=== PATIENT | female | born 1970 | race Caucasian/White ===

== ENCOUNTER → 2023-08-05 16:53 | Outpatient (REF) | payer BC, SELFPAY | LOC: WDC 16:53 | PROVIDERS: ATTENDING PHYSICIAN Nurse Practitioner Adult Health; FAMILY PHYSICIAN Physician Assistant Medical | DX: Z12.31 Encounter for screening mammogram for malignant neoplasm of breast (principal) | CPT/HCPCS: 77063; 77067 ==

== ENCOUNTER → 2023-08-19 11:18 | Outpatient (REF) | payer BC, SELFPAY | LOC: RAD 11:18 | PROVIDERS: ATTENDING PHYSICIAN Nurse Practitioner Adult Health; FAMILY PHYSICIAN Physician Assistant Medical | DX: N93.9 Abnormal uterine and vaginal bleeding, unspecified (principal); N92.4 Excessive bleeding in the premenopausal period | CPT/HCPCS: 76830; 76856 ==

== ENCOUNTER → 2023-10-10 07:30 | Outpatient (REF) | payer BC, SELFPAY | LOC: CLAB 07:30 | PROVIDERS: ATTENDING PHYSICIAN Obstetrics & Gynecology Gynecology | DX: N93.9 Abnormal uterine and vaginal bleeding, unspecified (principal); N84.0 Polyp of corpus uteri | CPT/HCPCS: 88305 ==

== ENCOUNTER → 2024-02-03 11:04 | Outpatient (REF) | payer BC, SELFPAY | LOC: RAD 11:04 | PROVIDERS: ATTENDING PHYSICIAN Physician Assistant Medical | DX: F17.210 Nicotine dependence, cigarettes, uncomplicated (principal) | CPT/HCPCS: 71271 ==

== ENCOUNTER 2024-06-29 18:04 | Emergency (ER) | payer BC, SELFPAY ==
[2024-06-29 18:29] VITALS: BP 136/88
--- NOTE | 2024-06-29 20:04 | ED.GENMED ---
History of Present Illness
General
Chief Complaint: Musculo-Skeletal Complaint
Time Seen by Provider: 06/29/24 19:30
History of Present Illness
History of Present Illness:
54-year-old female presents to the emergency department for evaluation of bruising and swelling to the left hip After a fall 2 weeks ago, has had persistent swelling focal to the hip area but no swelling to the leg. Was sent to the emergency
department to rule out a DVT
Review of Systems
Review of Systems
Allergies reviewed?: Yes
All Other Systems: ROS reviewed and negative except as documented in HPI and ROS
Phy Exam
Physical Exam
Physical Exam:
GEN: Well appearing, NAD, WDWN
HEENT: Oral mucosa moist, no scleral icterus
Cardiac: Regular rate
Lung: No respiratory distress, no tachypnea
MSK: Large palpable hematoma to the left hip greater trochanteric region, normal L hip ROM
Skin: Good color, no pallor or jaundice, no rashes
Neuro: AO x3, moves all extremities freely
Psych: Calm, cooperative
Course
Orders/Labs/Results
Orders:
Orders
06/29/24 20:03
CR Hip - LT w/wo Pel 2-3 Vw* Urgent
Comment:
Reason For Exam: fall, hematoma
Include a pelvis x-ray?: No
Vital Signs
Initial and Last Documented VS:
Initial Vital Signs
Temp Pulse Resp BP Pulse Ox
98.3 F 85 18 136/88 95
06/29/24 18:29 06/29/24 18:29 06/29/24 18:29 06/29/24 18:29 06/29/24 18:29
Last Documented Vital Signs
Temp Pulse Resp BP Pulse Ox
98.3 F 85 18 136/88 95
06/29/24 18:29 06/29/24 18:29 06/29/24 18:29 06/29/24 18:29 06/29/24 18:29
MDM/Problems Addressed
MDM/Problems Addressed:
XR unremarkable; discussed supportive care for hematoma, no indication for US
*Critical Care Note
Total Time (30-74mins, 75-104mins- exclusive of procedures): Not Applicable
ED Attending Note
-
Portions of this chart may have been created with voice recognition software.� Occasional wrong word or��sound alike� substitutions may have occurred due to the inherent limitations of voice recognition software.
Discharge Plan
Departure
Patient Disposition: Home (Routine Discharge)
Date of Disposition: 06/29/24
Time of Disposition: 21:19
Patient with high blood pressure during this ER visit?: No
Discharge Problem:
Hematoma of left hip
Instructions: Hematoma
Prescriptions:
No Action
levonorgest-eth.estradiol-iron [Balcoltra] 1 EACH tablet
1 ea PO DAILY
Referrals:
Bárbara Odonnell PA [Family Provider] -
Interventions
Interventions:
*Risk Screen - Suicide Last Done: 06/29/24 18:29
*General Assessment Last Done: 06/29/24 19:36
*Neglect/Abuse Screening Last Done: 06/29/24 18:29
*ED COVID-19 Vaccine History Last Done: 06/29/24 18:29
*Nursing Disposition Last Done: 06/29/24 21:45
ED-Musculoskeletal Assessment Last Done: 06/29/24 19:36
Discharge Date and Time
Discharge Date/Time: 06/29/24 21:45
Print Language: BULGARIAN
== END 2024-06-29 21:45 | disposition home or self-care (01) ==
LOC: EMR 18:04
PROVIDERS: EMERGENCY PHYSICIAN Emergency Medicine; FAMILY PHYSICIAN Physician Assistant Medical
DX: S70.02XA Contusion of left hip, initial encounter (principal); M79.89 Other specified soft tissue disorders; W19.XXXA Unspecified fall, initial encounter
CPT/HCPCS: 99283; 73502

== ENCOUNTER → 2024-07-02 14:56 | Outpatient (REF) | payer BC, SELFPAY | LOC: MRI 3T 14:56 | PROVIDERS: ATTENDING PHYSICIAN Specialist; FAMILY PHYSICIAN Physician Assistant Medical | DX: M54.16 Radiculopathy, lumbar region (principal) | CPT/HCPCS: 72148 ==

== ENCOUNTER 2024-11-13 22:15 | Inpatient (IN) | payer BC, SELFPAY ==
[2024-11-13] VITALS (26 sets, daily range): BP systolic 72–132; BP diastolic 39–110; BMI 30.3; BMI 30.7
[2024-11-13 17:25] LABS: Glucose - Point of Care 115 mg/dl (70-99)
[2024-11-13] MEDS: NSS 1000 IV ×3 (17:26→19:15)
[2024-11-13 17:29] LABS: Hematocrit 23.9 % (37.0-47.0); Hemoglobin 8.0 g/dL (12.0-16.0); Mean Corp Hgb Conc. 33.5 g/dL (33.0-37.0); Mean Corpuscular Volume 101.7 fL (81.0-99.0); Nucleated Red Blood Cells % 0 %; Platelet Count 164 10^3/uL (130-400); Red Cell Dist. Width 12.8 % (11.5-14.5)
[2024-11-13 17:51] LABS: Troponin I < 0.012 ng/ml
[2024-11-13 17:59] LABS: ALT (SGPT) 128 U/L (0-35); AST (SGOT) 303 U/L (14-36); Albumin 3.1 g/dl (3.5-5.0); Alkaline Phosphatase 153 U/L (38-126); Blood Urea Nitrogen 47 mg/dl (7-17); Calcium 10.2 mg/dl (8.4-10.2); Carbon Dioxide 21 mmol/L (22-30); Chloride 107 mmol/L (98-107); Estimated Creatinine Clearance 34 ml/min; Glucose 109 mg/dl (70-99); Potassium 3.8 mmol/L (3.5-5.1); Sodium 134 mmol/L (135-145); Total Protein 6.0 g/dl (6.3-8.2); eGFR 29.50
[2024-11-13] MEDS: PROTONIX IV 40 MG IV (19:27)
--- NOTE | 2024-11-13 19:37 | ED.GENMED ---
History of Present Illness
General
Chief Complaint: Fainting/Passed Out
Source: patient
Exam Limitations: none
Time Seen by Provider: 11/13/24 18:03
Nursing documentation reviewed up to this point in time: agreed with
History of Present Illness
History of Present Illness:
Patient to ED with complaint of near syncope, weakness. States she felt well this AM but reports while walking towards store she became lightheaded and then fell to her knees. Denies hitting her head. Does not believe that she passed out. Brought
to ED for weakness and lightheadedness.
Review of Systems
Review of Systems
Allergies reviewed?: Yes
All Other Systems: ROS reviewed and negative except as documented in HPI and ROS
Constitutional: Reports fatigue
EENT: Reports no symptoms
Respiratory: Reports no symptoms
Cardiac: Reports no symptoms
ABD/GI: Reports no symptoms
: Reports no symptoms
Musculoskeletal: Reports no symptoms
Skin: Reports no symptoms
Neurological: Reports weakness and other (lightheaded)
Psychiatric: Reports no symptoms
Phy Exam
General Physical Exam
General Presentation: mild distress
General age: appears stated age
General Skin: warm and dry
General Habitus: normal
General Mental: alert
Cardiovascular Exam
Cardiovascular Exam: regular rate/rhythm and no edema
Gastrointestinal Exam
Gastrointestinal Exam: normal bowel sounds, soft, no organomegaly, no pulsatile mass, non distended and no cva tenderness
Rectal Exam: normal external exam and hard stool
Stool: black
Guaiac Status: positive
Musculoskeletal Exam
Musculoskeletal Exam: full ROM and neuro vasc intact
Skin Exam
Skin Exam: normal color, warm/dry and no rash
Psychiatric Exam
Psychiatric Exam: normal mood/affect
Course
Orders/Labs/Results
Orders:
Orders
11/13/24 17:09
Electrocardiogram (*1) Urgent
Reason for Study: Syncope
EKG- Treatment ONCE
11/13/24 17:17
Complete Blood Count/With Diff Urgent
Comprehensive Metabolic Panel Urgent
Ferritin Urgent
Comment: ADD ON
Folate Urgent
Comment: ADD ON
Iron Urgent
Comment: ADD ON
Lipase Urgent
Comment: ADD ON
Total Iron Binding Urgent
Comment: ADD ON
Troponin I Urgent
Vitamin B12 Urgent
Comment: ADD ON
11/13/24 17:25
0.9% Sodium Chloride 1000 ml [Nss] 1,000 ml IV BOLUS
11/13/24 18:19
0.9% Sodium Chloride 500 ml [Nss] 500 ml IV BOLUS
11/13/24 18:27
0.9% Sodium Chloride 1000 ml [Nss] 1,000 ml IV BOLUS
11/13/24 19:10
Pantoprazole [Protonix IV] 40 mg IV NOW STA
11/13/24 19:11
CT Abd/pel Without Iv Or Oral Urgent
Comment:
Reason For Exam: abd pain
11/13/24 19:15
0.9% Sodium Chloride 1000 ml [Nss] 1,000 ml IV 125 mls/hr
11/13/24 19:36
Add On- LAB Urgent
Tests Added?: lipase
11/13/24 20:47
Urinalysis Reflex To Culture Urgent
Date Specimen was Collected: 11/13/24
Time Specimen was Collected: 20:45
Comment: Clean catch
11/13/24 21:16
Bladder Scan- Treatment ONCE
11/13/24 21:55
Admit/Transfer Patient As Directed
Co-Sign Provider:
Level of Care: Inpatient admission
Assign to:: IMU- Intermediate Care
Physician / Group: Byron
Diagnosis: Anemia, GI Bleed
Reason for Hospitalization: PPI, blood transfusion, GI consult
Expected length of stay greater than two midnights?: Yes
ELOS- Estimated Length of Stay in days: 3
I certify the patient meets the requirements for IP care: Yes
PRN Pain Medication Management As Directed
May give lesser potent ordered pain med per pt: Yes
preference::
Protocol:: Medication orders for pain may be administered in a
manner that supports deferring to patient preference
when the pt is:
- Requesting an ordered lesser potent pain medication.
Least to most potent pain medications are defined
as: acetaminophen < NSAID < tramadol < opioids
(morphine, oxycodone, hydromorphone).
- Requesting a lesser dose of the same medication IF
ORDERED.
- Requesting a less intrusive route of administration
if both routes are prescribed by the provider (PO <
IV).
11/13/24 21:57
Code Status As Directed
Resuscitation Status: Full Code
11/13/24 22:01
Add On- LAB Routine
Tests Added?: iron, ferritin, tibc, folate vit b12
11/16/24 11:00
DC Protocol for Telemetry ONCE
Abnormal Lab Results
11/13/24 11/13/24
17:17 17:24
RBC 2.35 L 10^6/uL
(4.20-5.40)
Hgb 8.0 L g/dL
(12.0-16.0)
Hct 23.9 L %
(37.0-47.0)
MCV 101.7 H fL
(81.0-99.0)
MCH 34.0 H pg
(27.0-31.0)
MPV 10.7 H fL
(7.4-10.4)
Lymphocytes % 20.4 L %
(20.5-51.1)
Sodium 134 L mmol/L
(135-145)
Carbon Dioxide 21 L mmol/L
(22-30)
BUN 47 H mg/dl
(7-17)
Creatinine 2.0 H mg/dL
(0.6-1.0)
Glucose 109 H mg/dl
(70-99)
Ferritin 766.0 H ng/ml
(11.1-264.0)
AST 303 H U/L
(14-36)
ALT 128 H U/L
(0-35)
Alkaline Phosphatase 153 H U/L
(38-126)
Total Protein 6.0 L g/dl
(6.3-8.2)
Albumin 3.1 L g/dl
(3.5-5.0)
POC Glucose 115 H mg/dl
(70-99)
11/13/24 17:17
11/13/24 17:17
Vital Signs
Initial and Last Documented VS:
Initial Vital Signs
Pulse Ox
96
11/13/24 17:15
Last Documented Vital Signs
Temp Pulse Resp BP Pulse Ox
98.4 F 71 16 105/63 97
11/13/24 17:18 11/13/24 23:15 11/13/24 23:15 11/13/24 23:15 11/13/24 23:15
*Pulse Oximetry
SaO2: 99
Oxygen Mode of Delivery: Room air
Patient hypoxic: no
*Critical Care Note
Total Time (30-74mins, 75-104mins- exclusive of procedures): Not Applicable
Update Note
Update Note:
Patient to ED with report of near syncopal event. REports feeling weak and lightheaded. Hypotensive on arrival. Given 1LNSS bolus withminimal improvement. Labs reviewed.Hgb 8 noted. ([facility] results: Hgb/hct 01/21/24 13.2/38.9). She denies any
prior history of anemia. CMP with BUN/Creat 47/2.0. Denies any history of renal disease. BUN/Creat from 01/21/24 4/0.69. AST 303, ALT 128 ALk phos 153 She admits to 3-4 glasses of wine every other day. believes she has had elevated liver enzymes
in the past ( 01/21/24 AST 255, ALT 87 alk phos 189) WIll admit to hospitalist for GI bleeding, symptomatic anemia, anemia FLORECITA, hypotension,
ED Attending Note
-
Portions of this chart may have been created with voice recognition software.� Occasional wrong word or��sound alike� substitutions may have occurred due to the inherent limitations of voice recognition software.
Discharge Plan
Departure
Patient Disposition: Admit
Date of Disposition: 11/13/24
Time of Disposition: 19:49
Presentation/result/management discussed w/ accepting MD/DO: Hospitalist
Patient with high blood pressure during this ER visit?: No
Condition: Fair
Covid-19: Not Applicable
Discharge Problem:
Acute GI bleeding, Anemia, FLORECITA (acute kidney injury)
Interventions
Interventions:
*Risk Screen - Suicide Last Done: 11/13/24 17:23
*General Assessment Last Done: 11/13/24 17:11
*Neglect/Abuse Screening Last Done: 11/13/24 17:23
*ED- Fall Risk Assessment Last Done: 11/13/24 17:11
*ED COVID-19 Vaccine History Last Done: 11/13/24 17:11
*Nursing Disposition Last Done: 11/13/24 23:22
ED- Cardiac Assessment Last Done: 11/13/24 17:23
ED- Neurological Assessment Last Done: 11/13/24 17:23
[2024-11-13 20:09] LABS: Lipase 156 U/L (23-300)
[2024-11-13 21:09] LABS: Urine Character Clear (Clear)
--- NOTE | 2024-11-13 22:10 | HPS.HSE ---
Addendum entered and electronically signed by Sunny Matthews DO 11/13/24 23:15:
Patient seen and examined independently. Agree with findings and plan as set forth by Arely Hardy PA-C.
Patient is a 54y F with PMH significant for hypertension, peripheral neuropathy and chronic liver disease / cirrhosis who presents to ED complaining of lightheadedness / collapse. Patient states that she started to feel lightheaded while
shopping today. She states that she fell to her knees, but denies losing consciousness. EMS states that she did briefly lose consciousness during their evaluation. Patient admits to regular use of ibuprofen (three times daily x weeks / months)
for chronic sciatic pain / back pain. She also reports regular alcohol use with at least 3 glasses of wine every other day. Occasional beer and hard alcohol as well.
Patient denies any N/V/D, black / bloody stools, abdominal pain, etc.
In the ED, she is noted to be hypotensive with black, heme positive stool on exam.
Ass:
UGIB
Acute Blood Loss Anemia secondary to the above
Syncope secondary to the above
FLORECITA
Benign Hypertension
Peripheral Neuropathy
Cirrhosis - Abnormal LFTs
Plan:
Admit for further evaluation and treatment.
NPO, IVFs, IV PPI.
Transfuse PRBCs for decreased Hgb (now 6.9 on repeat).
GI evaluation for further recommendations / endoscopic exam.
Abstain from NSAIDs, EtOH, etc.
Hold anti-hypertensive medications acutely.
Follow for recurrent lightheadedness, black / bloody stools, etc.
Original Note:
Family Physician
-
Family Physician: Bárbara Odonnell
Chief Complaint
-
Fainting/Passing Out
History of Present Illness
Patient si a 54 y/o female past medical history of hypertension, hyperlipidemia, peripheral neuropathy, and fatty liver disease who presents following a fainting episode. Patient report she was shopping and start to feel faint described as foggy.
EMS was called and initially patient refused transfer to the hospital but when attempting to get out of the truck she passed out. Upon arrival to the emergency department lab work revealed significant anemia, and patient was found to have
heme-positive stools. Patient denies any black/bloody stools. She admits to taking ibuprofen 600mg two to three times per day for her sciatica.
Medical History
Past Medical History
Past Medical History: Reports Other
Additional Past Medical History:
Essential Hypertension
Hyperlipidemia
Peripheral Neuropathy
Fatty Liver
Past Surgical History: Reports None
Social History
Tobacco: Vaping
Alcohol: Occasional (2-3 glasses of wine every other night)
Family History
Family History: Not pertinent
Allergies / Home Medications
Allergies reflects when Allergies were last updated in [employer].
Home Medications with original date entered in [employer]
Allergy/Medication List:
Allergies
Allergy/AdvReac Type Severity Reaction Status Date / Time
No Known Allergies Allergy Verified 11/13/24 17:23
Home Medications
amitriptyline 25 mg tablet 50 mg PO HS 11/13/24
atorvastatin 10 mg tablet 10 mg PO DAILY 11/13/24
losartan 50 mg tablet 50 mg PO DAILY 11/13/24
pregabalin 75 mg capsule 75 mg PO DAILY 11/13/24
pregabalin 75 mg capsule 150 mg PO HS 11/13/24
Review of Systems
-
A 12 point ROS was completed and negative except as noted: Yes
Constitutional: Denies Fever
Respiratory: Denies Cough or Trouble Breathing
Cardiac: Denies Chest Pain or Palpitations
Physical Exam
Vital Signs
Vital Signs
Temp Pulse Resp BP Pulse Ox
98.4 F 78 26 96/68 98
11/13/24 17:18 11/13/24 21:00 11/13/24 21:00 11/13/24 21:00 11/13/24 21:00
Physical Exam
General: Comfortable and Conversant
HEENT: NormoCephalic, Anicteric and Moist mucous membranes
Respiratory: Clear and Non Labored Respirations
Cardiac: S1/S2 and Regular Rhythm
GI: Soft and Non Tender
Rectal: Hem Positive (Per ED Provider)
Musculoskeletal: No Clubbing and No Cyanosis
Skin: Warm and Dry
Neuro: Awake, Alert, Oriented and Nonfocal/grossly intact
Psych: Calm
Laboratory Results
-
11/13/24 17:17
11/13/24 17:17
Laboratory Results
Total Bilirubin 1.2 mg/dl (0.2-1.3) 11/13/24 17:17
AST 303 U/L (14-36) H 11/13/24 17:17
ALT 128 U/L (0-35) H 11/13/24 17:17
Alkaline Phosphatase 153 U/L (38-126) H 11/13/24 17:17
Troponin I < 0.012 ng/ml 11/13/24 17:17
Lipase 156 U/L (23-300) 11/13/24 17:[address] Scan Report
Mildly nodular liver suggestive of cirrhosis.
Data Reviewed
-
Lab Data: Labs Reviewed by me
Old Records: Reviewed
Impression/Plan
-
Acute Blood Loss Anemia secondary to GI Bleed
-Check iron studies, vitamin b12 and folic acid
-Check Hgb now - Consider blood transfuse based on result - Consult obtained by ED and scanned into chart
GI Bleed, likely upper in nature relate to NSAID use
-Consult GI
-Continue Protonix 40mg IV BID
-Continue NPO/IVFs
Acute Kidney Injury, likely related to hypovolemia
-Continue IVFs
-Hold losartan
-Recheck labs in AM
Elevated LFTS
-Patient reports prior history of fatty liver
-CT scan raises concern for cirrhosis
-Continue to trend
Essential Hypertension
-BP running low - Hold losartan
Hyperlipidemia
-Hold atorvastatin
Peripheral Neuropathy / Chronic Pain
-Continue amitriptyline and pregabalin
DVT proph: SCDs
Code Status: Full Code
[2024-11-13 22:36] LABS: Iron 78 ug/dl (37-170)
[2024-11-13 22:45] LABS: Hematocrit 20.8 % (37.0-47.0); Hemoglobin 6.9 g/dL (12.0-16.0)
[2024-11-13 22:46] LABS: Total Iron Binding Capacity 273 ug/dl (265-497)
[2024-11-13 23:12] LABS: Ferritin 766.0 ng/ml (11.1-264.0)
[2024-11-13 23:44] LABS: Folate > 20.0 ng/ml (2.76-20); Vitamin B12 > 1000 pg/ml (239-931)
[2024-11-14] VITALS (24 sets, daily range): BP systolic 106–145; BP diastolic 59–94
[2024-11-14] MEDS: NSS 1000 IV ×3 (00:02→23:28)
[2024-11-14] MEDS: ELAVIL 50 MG PO ×2 (00:26→19:34)
[2024-11-14] MEDS: LYRICA 150 MG PO ×2 (00:27→19:34)
--- NOTE | 2024-11-14 01:08 | PTCARENOTE ---
2340: Patient arrived from ED with IVF infusing. Oriented to room and use of call rosenbaum. A/O x4. denies any pain. NSR on telemetry. Voided 800cc clear yellow urine in BSC; denied any dizziness. Admission questions complete. 2 units PRBCs ordered;
refer to [facility] for administration. Call rosenbaum and tray table left within reach. Patient thankful for care.
--- NOTE | 2024-11-14 06:08 | PTCARENOTE ---
2 units PRBCs infused without incident. VSS. Patient denies any pain. Next blood work due @ 0800.
--- NOTE | 2024-11-14 07:47 | CON.GI ---
Consultation
-
Date/Time Consultation Performed: 11/14/24
Performing Provider: Brandon Villafana MD
Reason for Consultation: GI bleed
Medical History
Chief Complaint / HPI
Chief Complaint: lightheadedness
History of Present Illness:
The patient is a 54-year-old female past medical history as noted who presents with lightheadedness. She had profound fatigue and fell to her knees yesterday with sudden onset of lightheadedness. This happened 1 other day on Friday though was
brief. She denies any melena though on presentation the emergency room had black tarry stools on rectal exam. Her hemoglobin on admission was 8, decreased to 6.9, now status post 2 units of PRBCs. Overnight she has been stable with no bowel
movements, no vomiting, has been hemodynamically stable. She states that she has known fatty liver though was not told that she has had cirrhosis in the past. She takes ibuprofen frequently as well as alcohol almost daily. Otherwise she been
doing well with really no other significant GI symptoms. She last had an endoscopy and colonoscopy noncoronary Co. around 2 years ago which were unremarkable by her report. CT scan in the emergency room per preliminary read shows mildly nodular
liver suggesting cirrhosis though otherwise no other acute findings.
Past Medical History
Past Medical History: Other (Fatty liver by report, chronic alcohol use, peripheral neuropathy, high cholesterol, hypertension)
Past Surgical History: None
Social History
Tobacco: Vaping
Alcohol: Daily
Family History
Family History: Reviewed & Not Pertinent
Allergies / Home Medications
Allergy/AdvReac Type Severity Reaction Status Date / Time
No Known Allergies Allergy Verified 11/13/24 17:23
�Medication �Instructions �Recorded
amitriptyline 25 mg tablet 50 mg PO HS 11/13/24
atorvastatin 10 mg tablet 10 mg PO DAILY 11/13/24
losartan 50 mg tablet 50 mg PO DAILY 11/13/24
pregabalin 75 mg capsule 75 mg PO DAILY 11/13/24
pregabalin 75 mg capsule 150 mg PO HS 11/13/24
Review of Systems
-
All other systems: A 12 pt ROS was Negative except as stated above in HPI
Vital Signs
Temp Pulse Resp BP Pulse Ox
97.5 F 67 17 128/78 97
11/14/24 07:40 11/14/24 07:41 11/14/24 07:30 11/14/24 07:41 11/14/24 07:41
Physical Exam
Exam
General: NAD
HEENT: MMM, anicteric, no lymphadenopathy
Heart: Regular, no murmurs
Lungs: CTA bilaterally
Abdomen: normal bowel sounds, soft, no tenderness, no rebound or guarding, no masses, bruits or ascites
Extremeties: no edema
Skin: no rashes
Results
WBC 7.3 10^3/uL (4.8-10.8) 11/13/24 17:17
Hgb 6.9 g/dL (12.0-16.0) L* 11/13/24 22:31
Hct 20.8 % (37.0-47.0) L* 11/13/24 22:31
MCV 101.7 fL (81.0-99.0) H 11/13/24 17:17
Plt Count 164 10^3/uL (130-400) 11/13/24 17:17
Absolute Neuts (auto) 4.9 10^3/uL (1.4-6.5) 11/13/24 17:17
Sodium 134 mmol/L (135-145) L 11/13/24 17:17
Potassium 3.8 mmol/L (3.5-5.1) 11/13/24 17:17
Chloride 107 mmol/L (98-107) 11/13/24 17:17
Carbon Dioxide 21 mmol/L (22-30) L 11/13/24 17:17
BUN 47 mg/dl (7-17) H 11/13/24 17:17
Creatinine 2.0 mg/dL (0.6-1.0) H 11/13/24 17:17
Calcium 10.2 mg/dl (8.4-10.2) 11/13/24 17:17
Total Bilirubin 1.2 mg/dl (0.2-1.3) 11/13/24 17:17
AST 303 U/L (14-36) H 11/13/24 17:17
ALT 128 U/L (0-35) H 11/13/24 17:17
Alkaline Phosphatase 153 U/L (38-126) H 11/13/24 17:17
Lipase 156 U/L (23-300) 11/13/24 17:17
Diagnostic Image Results:
CT scan without contrast as described above
Prior GI Procedures:
EGD:
Colonoscopy:
Assessment / Plan
-
1. GI bleed: Likely secondary to peptic ulcer disease given chronic NSAID use. CT scan raises suggestion of cirrhosis, though no other stigmata, with normal platelets, no ascites or signs of varices on CT scan. At this point we will continue PPI
twice daily, await posttransfusion hemoglobin, continue supportive care, check INR, and plan urgent EGD today. I discussed with Dr. Jernigan.
-
-
Thank you for consultation and allowing me to participate in the patient's care. Please call the strategic planning consultant GI physician during the after hours with any questions or concerns.
[2024-11-14] MEDS: VITAMIN B1 100 MG PO (08:07)
[2024-11-14] MEDS: LIPITOR 10 MG PO (08:07)
[2024-11-14] MEDS: PROTONIX IV 40 MG IV ×2 (08:07→19:34)
[2024-11-14] MEDS: NSS (PRESERVATIVE FREE) 10 ML IV ×2 (08:07→19:34)
[2024-11-14] MEDS: LYRICA 75 MG PO (08:07)
--- NOTE | 2024-11-14 08:12 | W.PN.HOSP.TC ---
Today's Communication/Plan
-
see PN
Assessment / Plan
Assessment / Plan
54yo F with PMHX of HLD, HTN, neuropathy, schiatica came with 2 days of lightheadedness w/o LOC and no neurological deficit, found severe anemia, received 1 unit PRBC in ED. Patient used NSAIDs daily for her schiatica. ALso known fatty liver but
without cirrhosis in past. FOund FOBT positive in ED
A/P:
#Blood loos symptomatic anemia 2/2 GIB
transfuse and keep Hgb >7
serial CBC
PPI
GI consult: EGD on 11/14/24
#FLORECITA
most liekly 2/2 hypovolemia and anemia
IVF, transfuse, follow Cr
might need further w/u if not improving
Cannot r/o NSAID induced, but no signs of ATN on US
#Midsystolic murmur
with lightheadedness - reasonable for Echo
#Hx of fatty liver
Transaminitis
Follow LFT
CT without overt signs of cirrhosis
check hepatitis panel
#Essential HTN
#Neuropathy
#HLD
#Insomnia
cont home meds
#Alcohol use, concern for abuse
watch for withdrawal
Thiamine
Folate WNL
counseled on cessation
DVT ppx SCds
Full code
I have spent at least 58min reviewing chart, test results, communication with consultants and providing direct patient care
Anticipated Discharge: 24 - 48 hours
Subjective/Interval History
-
Date of Service: November 14, 2024
Objective Data
-
Labs:
Laboratory Results
11/13/24 11/14/24 11/14/24
22:31 07:55 08:00
WBC Pending
Hgb 6.9 L* Pending
Hct 20.8 L* Pending
Plt Count Pending
PT Pending
INR Pending
Sodium Pending
Potassium Pending
Chloride Pending
Carbon Dioxide Pending
BUN Pending
Creatinine Pending
Glucose Pending
Calcium Pending
Vital Signs:
Vital Signs
Temp Pulse Resp BP Pulse Ox
97.5 F 67 17 128/78 97
11/14/24 07:40 11/14/24 07:41 11/14/24 07:30 11/14/24 07:41 11/14/24 07:41
I&O
11/13/24 11/14/24 11/15/24
06:59 06:59 06:59
Intake Total 500 / 500
Output Total 1900 / 1900
Balance -1400 / -1400
Review of Systems
-
History Source: Patient
All other systems: Reviewed and negative
Physical Exam
-
General: Comfortable and Respiratory Distress
HEENT: Normocephalic
Respiratory: Clear to Auscultation
Cardiac: Regular Rhythm and Murmur
GI: Soft, Nontender and Nondistended
Musculoskeletal: No Clubbing, No Cyanosis and No Edema
Neuro: Awake, Alert, Oriented and AO x 3
Psych: Calm
[2024-11-14 09:50] LABS: Hematocrit 31.5 % (37.0-47.0); Hemoglobin 10.7 g/dL (12.0-16.0); Mean Corp Hgb Conc. 34.0 g/dL (33.0-37.0); Mean Corpuscular Volume 99.1 fL (81.0-99.0); Platelet Count 132 10^3/uL (130-400); Red Cell Dist. Width 15.4 % (11.5-14.5)
[2024-11-14 09:56] LABS: INR 1.15; PT 15.0 Sec (11.4-14.6)
[2024-11-14 10:21] LABS: Blood Urea Nitrogen 30 mg/dl (7-17); Calcium 10.2 mg/dl (8.4-10.2); Carbon Dioxide 25 mmol/L (22-30); Chloride 114 mmol/L (98-107); Estimated Creatinine Clearance 85 ml/min; Glucose 88 mg/dl (70-99); Magnesium 2.2 mg/dl (1.6-2.3); Potassium 4.1 mmol/L (3.5-5.1); Sodium 142 mmol/L (135-145); eGFR > 60.00
[2024-11-14 11:26] LABS: Hepatitis B Surface Antigen Negative (Negative)
[2024-11-14 11:45] LABS: Hepatitis C Antibody Negative (Negative)
--- NOTE | 2024-11-14 16:32 | CM ---
Patient with Dx symptomatic anemia 2/2 GIB. EGD today. Room air. Clear liquids. Receiving IVF. Per nurse; ambulatory in room.
Spoke with patient who resides with her friend Carole in her 2 story house.
The patient's own home is undergoing major renovations and the patient will be staying with her friend for the next several months.
The patient was independent in ADLs and ambulation.
The patient is not working at present. She is active and recently involved in moving to her friend's house.
The patient has no DME or prior VN.
PCP - Bárbara Odonnell
Pharmacy - [facility]
No CM d/c needs identified.
Plan home.
--- NOTE | 2024-11-14 20:07 | VATNOTE ---
Right AC IV removed by PCN [facility] for concern over phlebitis. Area red, warm, tender to touch; no drainage noted. Area marked by PCN.
[2024-11-15] VITALS: BP 148/85
[2024-11-15 02:00] VITALS: BP 156/91
[2024-11-15 04:00] VITALS: BP 125/65
[2024-11-15 05:09] LABS: Hematocrit 29.6 % (37.0-47.0); Hemoglobin 10.1 g/dL (12.0-16.0); Mean Corp Hgb Conc. 34.1 g/dL (33.0-37.0); Mean Corpuscular Volume 97.4 fL (81.0-99.0); Nucleated Red Blood Cells % 0 %; Platelet Count 130 10^3/uL (130-400); Red Cell Dist. Width 15.3 % (11.5-14.5)
--- NOTE | 2024-11-15 05:20 | W.PN.GI.CBS2 ---
Today's Communication / Plan
-
Please see assessment and plan for details.
Assessment / Plan
-
1. GI bleed: Secondary to peptic ulcer disease and ulcerative esophagitis, though all clean-based ulcers, no stigmata of bleeding, hemoglobin stable overnight, no gross bleeding. At this point will advance diet and if tolerates is okay to DC from
GI standpoint on PPI twice daily. We discussed the importance of no NSAIDs or alcohol. Will plan repeat EGD in 6 weeks to assess healing. Will await pathology results throughout H. pylori and will notify her if positive.
2. Abnormal CT scan: Suggesting possible cirrhosis, though LFTs essentially normal, INR and platelets normal, no varices noted. Likely plan MR elastography as outpatient, again discussed alcohol abstinence.
We will sign off for now, please call back with any further questions.
Subjective
Subjective
Date of Service: November 15, 2024
Patient feeling well, no bowel movements overnight, hemoglobin remained stable, no abdominal pain, nausea or vomiting.
Objective
Data Reviewed
Laboratory Data:
Laboratory Results
11/15/24 04:45
Laboratory Results
PT 15.0 Sec (11.4-14.6) H 11/14/24 09:36
INR 1.15 11/14/24 09:36
Magnesium 2.2 mg/dl (1.6-2.3) 11/14/24 09:36
Total Bilirubin 1.2 mg/dl (0.2-1.3) 11/13/24 17:17
AST 303 U/L (14-36) H 11/13/24 17:17
ALT 128 U/L (0-35) H 11/13/24 17:17
Alkaline Phosphatase 153 U/L (38-126) H 11/13/24 17:17
Lipase 156 U/L (23-300) 11/13/24 17:17
Vital Signs and I&O:
Vital Signs
Temp Pulse Resp BP Pulse Ox
98.8 F 75 17 148/85 95
11/15/24 03:30 11/15/24 00:00 11/15/24 00:00 11/15/24 00:00 11/15/24 01:21
I&O
11/13/24 11/14/24 11/15/24
06:59 06:59 06:59
Intake Total 500 / 500 240 / 240
Output Total 1900 / 1900 2100 / 2099
Balance -1400 / -1400 -1860 / -1860
Physical Exam
Physical Exam
General: NAD
Abdomen: normal bowel sounds, soft, no tenderness, no masses or bruits, no ascites
[2024-11-15 05:29] LABS: ALT (SGPT) 153 U/L (0-35); AST (SGOT) 258 U/L (14-36); Albumin 3.3 g/dl (3.5-5.0); Alkaline Phosphatase 156 U/L (38-126); Blood Urea Nitrogen 11 mg/dl (7-17); Calcium 9.7 mg/dl (8.4-10.2); Carbon Dioxide 23 mmol/L (22-30); Chloride 113 mmol/L (98-107); Estimated Creatinine Clearance 113 ml/min; Glucose 86 mg/dl (70-99); Potassium 3.8 mmol/L (3.5-5.1); Sodium 141 mmol/L (135-145); Total Protein 6.4 g/dl (6.3-8.2); eGFR > 60.00
[2024-11-15 06:37] VITALS: BP 147/73
[2024-11-15] MEDS: NSS IV (07:22)
[2024-11-15 08:00] VITALS: BP 149/79
[2024-11-15] MEDS: PROTONIX 40 MG PO (08:48)
[2024-11-15] MEDS: LYRICA 75 MG PO (08:48)
[2024-11-15] MEDS: VITAMIN B1 100 MG PO (08:48)
[2024-11-15] MEDS: LIPITOR 10 MG PO (08:48)
[2024-11-15] MEDS: NSS (PRESERVATIVE FREE) IV (08:48)
[2024-11-15 10:00] VITALS: BP 140/84
--- NOTE | 2024-11-15 10:56 | W.PN.HOSP.TC ---
Today's Communication/Plan
-
DC home
PPI twice daily
Assessment / Plan
Assessment / Plan
54yo F with PMHX of HLD, HTN, neuropathy, chay came with 2 days of lightheadedness w/o LOC and no neurological deficit, found severe anemia, received 1 unit PRBC in ED. Patient used NSAIDs daily for her schiatica. ALso known fatty liver but
without cirrhosis in past. FOund FOBT positive in ED
A/P:
#Blood loos symptomatic anemia 2/2 GIB secondary to peptic ulcer disease and ulcerative esophagitis
Status post endoscopy. Patient will need to follow-up biopsy results as outpatient
Will need to repeat EGD in 6 weeks to assess healing.
PPI twice daily
Outpatient GI follow-up
#FLORECITA
most likely 2/2 hypovolemia and anemia
IVF, transfuse, follow Cr
might need further w/u if not improving
Cannot r/o NSAID induced, but no signs of ATN on US
Resolved. Creatinine 0.6.
#Midsystolic murmur
Echo with EF of 65 to 70%. No regional wall motion abnormalities are seen. Aortic sclerosis without stenosis.
#Hx of fatty liver likely secondary to alcohol abuse
Transaminitis
Follow LFT
CT without overt signs of cirrhosis
check hepatitis panel negative
#Essential HTN
#Neuropathy
#HLD
#Insomnia
cont home meds
#Alcohol use, concern for abuse
No tremors or withdrawal symptoms noted.
DVT ppx SCds
Full code
More than 30 minutes spent in discharge including
Final examination of the patient
Summarizing hospital stay
Instructions for continuing care to all relevant caregivers
Preparation of discharge records, prescriptions, and referral forms
Total time spent (in minutes): 55
Anticipated Discharge: Today
Subjective/Interval History
-
Date of Service: November 15, 2024
Tolerated diet
Denies abdominal pain
Denies lightheadedness dizziness
Objective Data
-
Labs:
Laboratory Results
11/15/24
04:45
WBC 6.4
Hgb 10.1 L
Hct 29.6 L
Plt Count 130
Sodium 141
Potassium 3.8
Chloride 113 H
Carbon Dioxide 23
BUN 11
Creatinine 0.6
Glucose 86
Calcium 9.7
Total Bilirubin 1.0
AST 258 H
ALT 153 H
Alkaline Phosphatase 156 H
Vital Signs:
Vital Signs
Temp Pulse Resp BP Pulse Ox
98.5 F 66 15 140/84 96
11/15/24 07:54 11/15/24 10:00 11/15/24 10:00 11/15/24 10:00 11/15/24 10:00
I&O
11/14/24 11/15/24 11/16/24
06:59 06:59 06:59
Intake Total 500 / 500 240 / 240
Output Total 1899 / 1899 2099 / 2099
Balance -1400 / -1400 -1860 / -0
Physical Exam
-
General: Comfortable and Respiratory Distress
HEENT: Normocephalic
Respiratory: Clear to Auscultation
Cardiac: Regular Rhythm, S1/S2 and Murmur
GI: Soft, Nontender and Nondistended
Musculoskeletal: No Clubbing, No Cyanosis and No Edema
Neuro: Awake, Alert, Oriented and AO x 3
Psych: Calm
--- NOTE | 2024-11-15 11:02 | W.DCSUMMARY ---
Discharge Summary
Discharge Data
Date of Admission: 11/13/24
Date of Discharge: 11/15/24
-
Pending Results: No
Hospital Course
54yo F with PMHX of HLD, HTN, neuropathy, sciatica came with 2 days of lightheadedness w/o LOC and no neurological deficit, found severe anemia, received 1 unit PRBC in ED. Patient used NSAIDs daily for her schiatica. ALso known fatty liver but
without cirrhosis in past. Found FOBT positive in ED. Patient was eval by gastroenterology. Patient was started on PPI. Patient underwent EGD which showed LA grade D reflux esophagitis. Nonbleeding gastric ulcer with clean ulcer base. Status
post biopsy. Patient hemoglobin posttransfusion remained stable. Patient was counseled on complete alcohol cessation. Patient was transitioned to PPI p.o. twice daily. Patient was tolerating diet. Patient with to follow-up outpatient with
gastroenterology for biopsy results and repeat endoscopy in 6 weeks for surveillance and for ulcer healing. All patient questions were answered and she was agreeable amenable discharge planning to home.
Discharge Plan
-
Patient Disposition: Home (Routine Discharge)
Discharge Diagnosis/Procedures: Acute upper GI bleeding secondary to peptic ulcer disease ulcerative esophagitis
Transaminitis
Acute kidney injury
Anemia status post blood transfusion
Condition: Fair
Diet: Regular
Activity: As tolerated
Driving Restrictions: As prior to admission
Blood Work: CBC and CMP in 1 week via primary doctor.
Referrals:
Rogers Villafana MD [Active, Gastroenterology] - in six weeks
Referral Note: Call to follow-up on the biopsy results
Bárbara Odonnell PA [Family Provider, Family Practice]
Prescriptions:
New
pantoprazole 40 mg Tablet,Delayed Release (Dr/Ec)
40 mg PO BID Qty: 60 0RF
Continued
losartan 50 mg tablet
50 mg PO DAILY
atorvastatin 10 mg tablet
10 mg PO DAILY
amitriptyline 25 mg tablet
50 mg PO HS
pregabalin 75 mg capsule
75 mg PO DAILY
pregabalin 75 mg capsule
150 mg PO HS
Discharge Orders:
Discharge Patient (As Directed); Ordered 11/15/24
Ordered By: Wes Marinelli
Discharge Date and Time
Discharge Date/Time: 11/15/24 12:00
Print Language: GEORGIAN
--- NOTE | 2024-11-15 11:13 | CM ---
CM reviewed chart and noted dc order
Bedside meeting with pt and no dc needs noted
Transportation home discussed along with WC van and associates fees
Pt declined due to costs- she will coordinate an [employer]
Will updated CM if van needs to be coordinated
Discharge Disposition- home, no needs, [employer] transport
--- NOTE | 2024-11-15 11:59 | PTCARENOTE ---
Pt dc as ordered with out incident
--- NOTE | 2024-11-16 14:48 | PN.CDI ---
CDI
- -
CDI:
Physician Documentation Request
Admit Date: 11/13/24 22:15
Dear Doctor Brdoerick,
Patient admitted with GI bleed.
11/14 Endoscopy procedure, 'Two non-bleeding cratered gastric ulcers with a clean ulcer base (Jonny Class III) were found in the gastric antrum.'
Please clarify which of the following likely represents the acuity of the gastric ulcers:
Acute
Acute on chronic
Chronic
Other
Use of terms such as suspected, likely, concern for, or probable (associated with a specific diagnosis that is being evaluated, monitored, or treated as if it exists) are acceptable and can be coded in the inpatient setting, when documented at the
time of discharge.
Thank you,
Jessica REYES,RN,CCDS
CDI Specialist
Available via tiger text
Please use your independent medical judgment in providing your response.
--- NOTE | 2024-11-16 15:14 | PN.CDI ---
CDI
- -
CDI:
Physician Documentation Request
Admit Date: 11/13/24 22:15
Dear Doctor Broderick,
Patient admitted with GI bleed.
11/14 Endoscopy procedure, 'Few non-bleeding superficial duodenal ulcers with a clean ulcer base (Jonny Class III) were found in the duodenal bulb and in the second portion of the duodenum.'
Please clarify which of the following likely represents the acuity of the duodenal ulcers:
Acute
Acute on chronic
Chronic
Other
Use of terms such as suspected, likely, concern for, or probable (associated with a specific diagnosis that is being evaluated, monitored, or treated as if it exists) are acceptable and can be coded in the inpatient setting, when documented at the
time of discharge.
Thank you,
Jessica REYES,RN,CCDS
CDI Specialist
Available via [employer] text
Please use your independent medical judgment in providing your response.
--- NOTE | 2024-11-17 07:18 | W.PN.UPDATE ---
Update Note
Progress Note Update
For clarification both gastric and duodenal ulcers are acute.
== END 2024-11-15 12:00 | disposition home or self-care (01) | DRG 381 ==
LOC: IMU 22:15
PROVIDERS: Internal Medicine; Nurse Practitioner; Physician Assistant Medical; ADMITTING PHYSICIAN Hospitalist; ATTENDING PHYSICIAN Hospitalist; CONSULT PHYSICIAN Internal Medicine Gastroenterology; EMERGENCY PHYSICIAN Student in an Organized Health Care Education/Training Program; FAMILY PHYSICIAN Physician Assistant Medical
PROC: 0DB98ZX Excision of Duodenum, Via Natural or Artificial Opening Endoscopic, Diagnostic (ICD-10-PCS; 2024-11-14)
PROC: 30233N1 Transfusion of Nonautologous Red Blood Cells into Peripheral Vein, Percutaneous Approach (ICD-10-PCS; 2024-11-14)
PROC: 0DB78ZX Excision of Stomach, Pylorus, Via Natural or Artificial Opening Endoscopic, Diagnostic (ICD-10-PCS; 2024-11-14)
DX: K22.11 Ulcer of esophagus with bleeding (principal); D62 Acute posthemorrhagic anemia; N17.9 Acute kidney failure, unspecified; K25.0 Acute gastric ulcer with hemorrhage; G62.9 Polyneuropathy, unspecified; K26.0 Acute duodenal ulcer with hemorrhage; I10 Essential (primary) hypertension; K74.60 Unspecified cirrhosis of liver; M54.30 Sciatica, unspecified side; G89.29 Other chronic pain; R55 Syncope and collapse; K76.0 Fatty (change of) liver, not elsewhere classified; F17.290 Nicotine dependence, other tobacco product, uncomplicated; E78.00 Pure hypercholesterolemia, unspecified; I95.9 Hypotension, unspecified; R01.1 Cardiac murmur, unspecified; G47.00 Insomnia, unspecified; F10.90 Alcohol use, unspecified, uncomplicated; Z79.1 Long term (current) use of non-steroidal anti-inflammatories (NSAID); Z79.899 Other long term (current) drug therapy
CPT/HCPCS: 51798; 74176; 80048; 80053; 81003; 82550; 82607; 82728; 82746; 82962; 83540; 83550; 83690; 83735; 84484; 85014; 85018; 85025; 85027; 85610; 86704; 86706; 86803; 86850; 86900; 86901; 86920; 87340; 88305; 88342; 93005; 93306; 96361; 96374; 99285; P9016

== ENCOUNTER 2025-01-07 06:15 | Day surgery (SDC) | payer BC, SELFPAY | END 2025-01-07 09:19 | disposition home or self-care (01) | LOC: GI 06:15 | PROVIDERS: ATTENDING PHYSICIAN Internal Medicine Gastroenterology; FAMILY PHYSICIAN Physician Assistant Medical | DX: K27.3 Acute peptic ulcer, site unspecified, without hemorrhage or perforation (principal); K91.81 Other intraoperative complications of digestive system; Z09 Encounter for follow-up examination after completed treatment for conditions other than malignant neoplasm; Z53.9 Procedure and treatment not carried out, unspecified reason | CPT/HCPCS: 43235 ==